=== PATIENT | female | born 1990 | race Caucasian/White ===

== ENCOUNTER 2017-04-29 01:47 | Emergency (ER) | payer OTHER ==
[~2017-04-29] VITALS: Ht 152.4 cm; Wt 44.5 kg
[~2017-04-29 01:47] MED LIST: BACTRIM DS TAB1 EACH PO; CIPRO250 M1 PO; CIPRO250 M2 PO; CIPRO500 MG PO; CIPROFLOXACIN500 M3 PO; CLEOCIN HCL150 MG PO; FLAGYL500 MG PO; HYDROCODONE-AP1 EAC6 PO; IBUPROFEN 800800 M1 PO; LIDOCAINE VISC100 M1 SWISH&SPIT; NOHOMEMEDICATIONS; NORCO 5-325 TA1 EACH PO; PENICILLIN V P500 MG PO; PROVENTIL HFA6.7 G1 INH; TESSALON200 MG PO; VICODIN 5-3001 EACH PO; ZPAK PO
[2017-04-29] MEDS ORDERED: PREDNISONE 20 M20 M1 PO (02:12)
[2017-04-29] MEDS ORDERED: ZPAK PO (02:12)
[2017-04-29 02:19] LABS: INFLUENZA B ANTIGEN None Detected (None Detect)
[2017-04-29] MEDS ORDERED: OSELB75 PO (02:21)
[2017-04-29 02:25] VITALS: BP 122/67
== END 2017-04-29 02:26 | disposition home or self-care (01) ==
LOC: M.ERS 01:47
PROVIDERS: Family Medicine
DX: J09.X2 Influenza due to identified novel influenza A virus with other respiratory manifestations (principal); J45.909 Unspecified asthma, uncomplicated; F10.99 Alcohol use, unspecified with unspecified alcohol-induced disorder; Z97.5 Presence of (intrauterine) contraceptive device

== ENCOUNTER 2018-01-27 19:16 | Emergency (ER) | payer OTHER, MEDICAID ==
[~2018-01-27] VITALS: Ht 152.4 cm; Wt 59.0 kg
[~2018-01-27 19:16] MED LIST changes: +OSELB75 PO; +PREDNISONE 20 M20 M1 PO
[2018-01-27] MEDS ORDERED: VITAFOL-OB+DHA1 EACH PO (19:22)
[2018-01-27 20:19] VITALS: BP 108/53
== END 2018-01-27 20:19 | disposition home or self-care (01) ==
LOC: M.ERS 19:16
DX: O99.513 Diseases of the respiratory system complicating pregnancy, third trimester (principal); Z3A.28 28 weeks gestation of pregnancy

== ENCOUNTER 2018-03-02 03:46 | Emergency (ER) | payer OTHER, MEDICAID ==
[~2018-03-02] VITALS: Ht 152.4 cm; Wt 65.8 kg
[~2018-03-02 03:46] MED LIST changes: +VITAFOL-OB+DHA1 EACH PO
[2018-03-02] MEDS ORDERED: AMOXICILLIN 50500 M1 PO (04:01)
[2018-03-02] MEDS ORDERED: NORCO 7.5-3251 EACH PO (04:01)
[2018-03-02 04:11] VITALS: BP 123/64
== END 2018-03-02 04:05 | disposition home or self-care (01) ==
LOC: M.ERS 03:46
DX: K08.89 Other specified disorders of teeth and supporting structures (principal); J45.909 Unspecified asthma, uncomplicated

== ENCOUNTER 2018-05-22 10:21 | Emergency (ER) | payer OTHER, MEDICAID ==
[~2018-05-22] VITALS: Ht 152.4 cm; Wt 59.0 kg
[~2018-05-22 10:21] MED LIST changes: +AMOXICILLIN 50500 M1 PO; +NORCO 7.5-3251 EACH PO
[2018-05-22] MEDS ORDERED: LIDOCAINE VISC100 ML PO (10:37)
[2018-05-22] MEDS ORDERED: AMOXICILLIN 50500 MG PO (10:37)
[2018-05-22] MEDS ORDERED: ACETAMINOPHEN-1 EAC1 PO (10:37)
[2018-05-22 10:43] VITALS: BP 131/63
== END 2018-05-22 10:44 | disposition home or self-care (01) ==
LOC: M.ERS 10:21
DX: K08.89 Other specified disorders of teeth and supporting structures (principal); J45.909 Unspecified asthma, uncomplicated

== ENCOUNTER 2018-11-10 11:33 | Emergency (ER) | payer OTHER, MEDICAID ==
[~2018-11-10] VITALS: Ht 152.4 cm; Wt 64.9 kg
[~2018-11-10 11:33] MED LIST changes: +ACETAMINOPHEN-1 EAC1 PO; +AMOXICILLIN 50500 MG PO; +LIDOCAINE VISC100 ML PO
[2018-11-10] MEDS ORDERED: PREDNISONE 20 M20 MG PO (12:14)
[2018-11-10] MEDS ORDERED: KEFLEX500 M1 PO (12:14)
[2018-11-10] MEDS ORDERED: HYDROCORTISONE3011 TOP (12:15)
[2018-11-10 12:58] VITALS: BP 112/66
== END 2018-11-10 12:29 | disposition home or self-care (01) ==
LOC: M.ERS 11:33
DX: S00.86XA Insect bite (nonvenomous) of other part of head, initial encounter (principal); W57.XXXA Bitten or stung by nonvenomous insect and other nonvenomous arthropods, initial encounter; Y93.89 Activity, other specified; Y92.89 Other specified places as the place of occurrence of the external cause; Y99.8 Other external cause status

== ENCOUNTER 2018-12-31 18:45 | Emergency (ER) | payer OTHER, MEDICAID ==
[~2018-12-31] VITALS: Ht 152.4 cm; Wt 63.0 kg
[2018-12-31 18:45] VITALS: BP 134/65
[~2018-12-31 18:45] MED LIST changes: +HYDROCORTISONE3011 TOP; +KEFLEX500 M1 PO; +PREDNISONE 20 M20 MG PO
[2018-12-31] MEDS ORDERED: ACTICIN 5% CREA60 G1 TOP (19:00)
[2018-12-31] MEDS ORDERED: KEFLEX500 M1 PO (19:01)
[2018-12-31] MEDS ORDERED: PREDNISONE 10 M10 MG PO (19:08)
[2018-12-31] MEDS ORDERED: HYDROXYZINE HCL25 M2 PO (19:08)
== END 2018-12-31 19:21 | disposition home or self-care (01) ==
LOC: M.ERS 18:45
DX: L29.9 Pruritus, unspecified (principal)

== ENCOUNTER 2019-02-22 16:59 | Emergency (ER) | payer OTHER, MEDICAID ==
[~2019-02-22] VITALS: Ht 177.8 cm; Wt 62.6 kg
[~2019-02-22 16:59] MED LIST changes: +ACTICIN 5% CREA60 G1 TOP; +HYDROXYZINE HCL25 M2 PO; +PREDNISONE 10 M10 MG PO
[2019-02-22 18:05] LABS: INFLUENZA A ANTIGEN Negative (Negative); INFLUENZA B ANTIGEN Negative (Negative)
[2019-02-22 18:50] VITALS: BP 117/64
== END 2019-02-22 18:50 | disposition home or self-care (01) ==
LOC: M.ERS 16:59
PROVIDERS: Nurse Practitioner Family
DX: J00 Acute nasopharyngitis [common cold] (principal)